=== PATIENT | female | born 1930 | race Caucasian/White ===

== ENCOUNTER 2020-09-25 15:13 | Emergency (ER) | payer OTHER, MEDICARE ==
[~2020-09-25] VITALS: Ht 162.6 cm; Wt 54.4 kg
[2020-09-25 15:34] VITALS: BP_SYST 160
[2020-09-25] MEDS: TRANEXAMIC ACID 1,000 MG/10 ML VIAL IV ONE (16:32)
[2020-09-25 18:28] VITALS: BP_SYST 145
== END 2020-09-25 18:29 | disposition home or self-care (01) ==
LOC: SED 15:13
DX: R04.0 Epistaxis (principal)
CPT/HCPCS: 30903; 99284; J3490